=== PATIENT | male | born 2000 | race Two or more races ===

== ENCOUNTER 2022-09-02 04:20 | Day surgery (SDC) | payer BC ==
[2022-08-31 16:09] VITALS: BMI 27.8
[~2022-09-02 04:20] MED LIST: BACITRACIN 15 GM TUBE TOPICAL OINTMENT TP ONE
[2022-09-02] MEDS ORDERED: BACITRACIN 15 GM TUBE TOPICAL OINTMENT ONE (07:22)
[2022-09-02] MEDS ORDERED: BUPIVACAINE HCL/PF 0.25% (2.5MG/ML) 10 ML VIAL ONE (07:22)
[2022-09-02] MEDS ORDERED: FENTANYL CITRATE/PF 50 MCG/ML VIAL ONE ×2 (07:24→08:40)
[2022-09-02] MEDS ORDERED: LIDOCAINE HCL/PF 2% SDV 5ML VIAL ONE (07:24)
[2022-09-02] MEDS ORDERED: MIDAZOLAM HCL 2 MG/2 ML SINGLE DOSE VIAL ONE (07:24)
[2022-09-02] MEDS ORDERED: PROPOFOL 40 ML ONE (07:24)
[2022-09-02] MEDS ORDERED: DEXAMETHASONE SOD PHOSPHATE 4 MG/1 ML VIAL ONE (07:26)
[2022-09-02] MEDS ORDERED: ceFAZolin SODIUM 1 GM VIAL ONE (07:26)
[2022-09-02] MEDS ORDERED: ONDANSETRON 4 MG/2 ML VIAL ONE (07:26)
[2022-09-02] MEDS ORDERED: ceFAZolin SODIUM 1 GM VIAL IVPB ONE (08:30)
[2022-09-02] MEDS ORDERED: BUPIVACAINE HCL/PF 0.25% (2.5MG/ML) 10 ML VIAL IJ ONE ×2 (08:36)
[2022-09-02] MEDS ORDERED: ACETAMINOPHEN 1000 MG/100 ML BAG IVPB ONE (09:28)
[2022-09-02] MEDS ORDERED: ONDANSETRON 4 MG/2 ML VIAL IVPUSH PRN (09:28)
[2022-09-02] MEDS ORDERED: oxyCODONE HCL 5 MG TABLET PO PRN (09:28)
[2022-09-02] MEDS ORDERED: LACTATED RINGERS SOLUTION 1,000 ML IV SCH (09:30)
[2022-09-02 11:06] VITALS: RESP 18
[2022-09-02 11:11] VITALS: BP 137/67; PULSE 74; TEMP 98.8
== END 2022-09-02 15:25 | disposition home or self-care (01) ==
LOC: JASU-SURG 04:20
PROVIDERS: ATTEND Urology
PROC: 0VTTXZZ Resection of Prepuce, External Approach (ICD-10-PCS; principal; 2022-09-02 07:30)
DX: N47.1 Phimosis (principal)
CPT/HCPCS: 88304-TC; 94760